=== PATIENT | female | born 1965 | race Caucasian/White ===

== ENCOUNTER 2021-02-23 03:29 | Emergency (ER) | payer OTHER ==
[~2021-02-23] VITALS: Ht 160 cm; Wt 61.4 kg
[~2021-02-23 03:29] MED LIST: ENZY1TAB5 PO; HYDR-4383 PO; LACT1CAP73 PO; LORA-641; LORA0.5T PO; OMEP20CA15 PO; ONDA8TAB6 PO
[2021-02-23] MEDS ORDERED: fentaNYL/PF 50MCG/1 ML 2ML syringe IV ONE (03:55)
[2021-02-23] MEDS ORDERED: LIDOcaine 1% 30ml preserv. free vial IJ ONE (04:40)
[2021-02-23] MEDS ORDERED: propofol 10mg/ml 20ml vial IV ONE (04:40)
[2021-02-23] MEDS ORDERED: ondansetron/PF 4mg/2ml inj IV ONE (04:50)
[2021-02-23] MEDS ORDERED: IBUP-1986 PO ×2 (05:44)
[2021-02-23] MEDS ORDERED: OXYC-145 PO ×2 (05:44)
--- NOTE | 2021-02-23 06:02 | NUR ---
called and left message with to come give patient a ride home.
[2021-02-23 06:24] VITALS: BP 106/70
[2021-02-23] MEDS ORDERED: oxyCODONE/APAP 5-325mg tablet PO ONE (06:35)
--- NOTE | 2021-02-23 06:49 | NUR ---
PT RECEIVED PERCOCET 5MG FOR PAIN RIGHT WRIST 10/25
[2021-02-28] MEDS ORDERED: NO HOME MEDS (15:58)
== END 2021-02-23 06:51 | disposition home or self-care (01) ==
LOC: ER 03:30
DX: S62.101A Fracture of unspecified carpal bone, right wrist, initial encounter for closed fracture (principal); F41.9 Anxiety disorder, unspecified; Z88.2 Allergy status to sulfonamides; Z88.8 Allergy status to other drugs, medicaments and biological substances; X58.XXXA Exposure to other specified factors, initial encounter; Y93.89 Activity, other specified; Y92.89 Other specified places as the place of occurrence of the external cause; Y99.8 Other external cause status
CPT/HCPCS: 25605; 73080; 73110; 94799; 96374; 99152; 99153; 99285; J2001; J2405; J2704; J3010

== ENCOUNTER 2021-03-04 09:44 | Day surgery (SDC) | payer OTHER ==
[~2021-03-04] VITALS: Ht 160 cm; Wt 62.9 kg
[~2021-03-04 09:44] MED LIST changes: -ENZY1TAB5 PO; -HYDR-4383 PO; -LACT1CAP73 PO; -LORA-641; -LORA0.5T PO; +NO HOME MEDS; -OMEP20CA15 PO; -ONDA8TAB6 PO; +cefazolin/dext.iso 2gm/50ml 50 ML IV ONE; +famotidine 20mg tablet PO ONE; +ringers solution, lacted 1,000 ML IV SCH
[2021-03-04] MEDS ORDERED: BUPIVAcaine/PF 2.5 mg/ml (0.25%) 30ml vial ONE (10:22)
[2021-03-04 11:18] LABS: ISTAT ANION GAP 9 (8-12); ISTAT BUN 4 mg/dL (7-18); ISTAT CL 99 mmol/L (99-107); ISTAT CREATININE 0.6 mg/dL (0.6-1.1); ISTAT GLUCOSE 107 mg/dL (70-105); ISTAT HGB 12.6 g/dl (12.0-16.0); ISTAT Hct 37 %PCV (35-48); ISTAT IONIZED CALCIUM 1.19 mmol/L (1.03-1.32); ISTAT K 4.3 mmol/L (3.5-5.1); ISTAT NA 137 mmol/L (135-145); ISTAT TOTAL CO2 29 mmol/L (24-32); ISTAT eGFR > 90 ML/MIN; POC BUN/CREATININE RATIO 6.7 (6.6-38.0)
[2021-03-04] MEDS ORDERED: morphine 2 MG/ML inj. syringe IV PRN (11:25)
[2021-03-04] MEDS ORDERED: proCHLORperazine 10 MG/2 ml inj IV PRN (11:25)
[2021-03-04] MEDS ORDERED: morphine 4 MG/ML inj SYRINge IV PRN (11:25)
[2021-03-04] MEDS ORDERED: ringers solution, lacted 1,000 ML IV SCH (11:25)
[2021-03-04] MEDS ORDERED: meperidine/PF 25mg/ml syringe IV PRN ×3 (11:25)
[2021-03-04] MEDS ORDERED: labetalol 20mg/4ml (5mg/ml) syringe IV PRN (11:25)
[2021-03-04] MEDS ORDERED: acetaminophen 1,000mg/100ml IV 100 ML IV PRN (11:25)
[2021-03-04] MEDS ORDERED: ondansetron/PF 4mg/2ml inj IV PRN (11:25)
[2021-03-04] MEDS ORDERED: hydrALAZINE 20mg/ml inj. IV PRN (11:25)
[2021-03-04] MEDS ORDERED: scopolamine 1mg/72 hr patch TD ONE (11:50)
[2021-03-04] MEDS ORDERED: cloNIDine hcl/PF 100mcg/ml inj ONE (11:58)
[2021-03-04] MEDS ORDERED: fentaNYL/PF 50MCG/1 ML 2ML syringe ONE (12:00)
[2021-03-04] MEDS ORDERED: midazolam 1 mg/ML 2ml injection ONE (12:01)
[2021-03-04] MEDS ORDERED: dexamethasone sod phosphate 4mg/ml inj. ONE (12:52)
[2021-03-04] MEDS ORDERED: LIDOcaine 2% (20mg/ml) 5ml vial ONE (12:52)
[2021-03-04] MEDS ORDERED: ondansetron/PF 4mg/2ml inj ONE (12:52)
[2021-03-04] MEDS ORDERED: ROPIVAcaine 0.5% (5mg/ml) 30ml vial ONE (12:52)
[2021-03-04 13:15] VITALS: BP 129/75
--- NOTE | 2021-03-04 13:15 | NUR ---
ASSUME CARE PT AWAKE ALERT TALKING FM 10 L REMOVED SAT 97% NO DISTRESS, DENIES PAIN SOFT JESSI WRAP DRESSING TO RIGHT HAND INTACT WITH +CMS TO THE RIGHT HAND. ELEVATED AND ICED CONT TO MONITR Addendum: 03/04/21 at 1341 by Carmelita Hart RN Amended: Links added.
[2021-03-04 13:30] VITALS: BP 114/74
[2021-03-04 13:39] VITALS: BP 133/71
[2021-03-04 13:40] VITALS: BP 108/68
--- NOTE | 2021-03-04 13:41 | NUR ---
MORE AWAKE ON RA SAT 96% ENC TCDB HEATHER POS NO PAIN Addendum: 03/04/21 at 1342 by Carmelita Hart RN Amended: Links added.
[2021-03-04 13:42] VITALS: BP 133/71
[2021-03-04 13:50] VITALS: BP 112/65
--- NOTE | 2021-03-04 14:00 | NUR ---
ASSIST PT WITH DRESSING DENIES PAIN INSTR GIVEN NO ?'S OR CONCERNS MEETS CRITERIA TO DC HOME CALLLED Addendum: 03/04/21 at 1453 by Carmelita Hrat RN Amended: Links added.
== END 2021-03-04 14:15 | disposition home or self-care (01) ==
LOC: PAS 09:44
PROVIDERS: ATTEND Orthopaedic Surgery Hand Surgery
DX: S52.531A Colles' fracture of right radius, initial encounter for closed fracture (principal); G89.18 Other acute postprocedural pain; Z20.822 Contact with and (suspected) exposure to COVID-19; Z88.2 Allergy status to sulfonamides; Z91.018 Allergy to other foods; Z79.899 Other long term (current) drug therapy; Z90.710 Acquired absence of both cervix and uterus; Z98.890 Other specified postprocedural states; Z72.89 Other problems related to lifestyle; W19.XXXA Unspecified fall, initial encounter; Y93.89 Activity, other specified; Y92.89 Other specified places as the place of occurrence of the external cause; Y99.8 Other external cause status
CPT/HCPCS: 25607; 64417; 76942; 80047; 87635; 93005; A6222; C1713; C9803; J0735; J1100; J2001; J2250; J2405; J3010; J3490; J7120; Z7506; Z7508; Z7512; A4215; A4618; A6449; A7000; J2795

== ENCOUNTER 2021-04-01 14:27 | Emergency (ER) | payer OTHER ==
[~2021-04-01] VITALS: Ht 160 cm; Wt 61.4 kg
[~2021-04-01 14:27] MED LIST changes: -cefazolin/dext.iso 2gm/50ml 50 ML IV ONE; -famotidine 20mg tablet PO ONE; -ringers solution, lacted 1,000 ML IV SCH
[2021-04-01 15:47] LABS: BASOPHILS % (AUTO) 0.3 % (0-1); EOSINOPHILS # (AUTO) 0.2 X10'3 (0-0.9); EOSINOPHILS % (AUTO) 1.8 % (0-6); HEMATOCRIT 41.9 % (35.0-45.0); HEMOGLOBIN 14.4 g/dl (12.0-16.0); LYMPHOCYTES # (AUTO) 2.2 X10'3 (1.1-4.8); LYMPHOCYTES % (AUTO) 20.3 % (21-51); MEAN CORPUSCULAR HEMOGLOBIN 33.8 PG (27.0-31.0); MEAN CORPUSCULAR HGB CONC 34.3 g/dL (33.0-36.5); MEAN CORPUSCULAR VOLUME 98.4 FL (78-98); MEAN PLATELET VOLUME 7.5 FL (7.4-10.4); MONOCYTES # (AUTO) 0.9 X10'3 (0-0.9); MONOCYTES % (AUTO) 8.5 % (2-12); NEUTROPHILS # (AUTO) 7.3 X10'3 (1.8-7.7); NEUTROPHILS % (AUTO) 69.1 % (42-75); PLATELET COUNT 286 X10'3 (140-440); RED BLOOD COUNT 4.26 X10'6 (4.20-5.60); RED CELL DISTRIBUTION WIDTH 12.5 % (11.5-14.5); WHITE BLOOD COUNT 10.6 X10'3 (4.5-11.0)
[2021-04-01 15:48] LABS: ALANINE AMINOTRANSFERASE 17 U/L (12-78); ALBUMIN 3.9 G/DL (3.4-5.0); ALBUMIN/GLOBULIN RATIO 0.8 (1.1-1.5); ALKALINE PHOSPHATASE 134 IU/L (46-116); ANION GAP 13 (8-16); ASPARTATE AMINO TRANSFERASE 16 U/L (10-37); BILIRUBIN,TOTAL 0.8 MG/DL (0.1-1.0); BLOOD UREA NITROGEN 4 MG/DL (7-18); BUN/CREATININE RATIO 5.6 (6.6-38.0); CALCIUM 9.3 MG/DL (8.5-10.1); CHLORIDE 98 MMOL/L (99-107); CREATININE 0.72 MG/DL (0.40-0.90); GLUCOSE 106 MG/DL (70-104); LIPASE 671 U/L (73-393); POTASSIUM 3.7 MMOL/L (3.5-5.1); SODIUM 137 MMOL/L (135-145); TOTAL CARBON DIOXIDE 26.4 MMOL/L (24-32); TOTAL PROTEIN 8.9 G/DL (6.4-8.2); eGFR 84 ML/MIN
[2021-04-01] MEDS ORDERED: ketorolac trometh. 30mg/ml inj. IV ONE (20:20)
[2021-04-01] MEDS ORDERED: normal saline 1000ML IV soln IVB ONE (20:20)
[2021-04-01] MEDS ORDERED: ondansetron/PF 4mg/2ml inj IV ONE (20:20)
[2021-04-01] MEDS ORDERED: traZODone 50mg tablet PO STA (21:49)
[2021-04-01] MEDS ORDERED: KETO10TA2 PO (22:11)
[2021-04-01] MEDS ORDERED: TRAZ-256 PO (22:11)
[2021-04-01] MEDS ORDERED: ONDA4TAB6 PO (22:11)
[2021-04-01] MEDS ORDERED: morphine 4 MG/ML inj SYRINge IV ONE (22:15)
[2021-04-01] MEDS ORDERED: LACT10SO3 PO (22:17)
[2021-04-01 22:30] VITALS: BP 144/6
== END 2021-04-01 22:33 | disposition home or self-care (01) ==
LOC: ER 14:28
DX: K85.90 Acute pancreatitis without necrosis or infection, unspecified (principal); K59.00 Constipation, unspecified; R10.10 Upper abdominal pain, unspecified; R50.9 Fever, unspecified; R11.0 Nausea; F41.9 Anxiety disorder, unspecified; Z90.710 Acquired absence of both cervix and uterus; Z90.89 Acquired absence of other organs; Z98.890 Other specified postprocedural states; Z72.89 Other problems related to lifestyle; Z88.2 Allergy status to sulfonamides; Z79.899 Other long term (current) drug therapy
CPT/HCPCS: 36415; 74018; 80053; 83690; 85025; 96361; 96374; 96375; 99284; J1885; J2270; J2405; J7030

== ENCOUNTER 2021-04-08 08:00 | Inpatient (IN) | payer OTHER ==
[~2021-04-08] VITALS: Ht 160 cm; Wt 59.1 kg
[~2021-04-08 08:00] MED LIST changes: +KETO10TA2 PO; +LACT10SO3 PO; +ONDA4TAB6 PO; +TRAZ-256 PO
[2021-04-08] MEDS ORDERED: morphine 4 MG/ML inj SYRINge IV ONE ×2 (08:25→17:25)
[2021-04-08] MEDS ORDERED: ondansetron/PF 4mg/2ml inj IV ONE ×2 (08:25→17:25)
[2021-04-08] MEDS ORDERED: normal saline 1000ML IV soln IV ONE (08:25)
[2021-04-08 08:55] LABS: BASOPHILS % (AUTO) 0.4 % (0-1); EOSINOPHILS # (AUTO) 0.1 X10'3 (0-0.9); EOSINOPHILS % (AUTO) 0.8 % (0-6); HEMATOCRIT 34.5 % (35.0-45.0); LYMPHOCYTES % (AUTO) 11.9 % (21-51); MEAN CORPUSCULAR HEMOGLOBIN 33.9 PG (27.0-31.0); MEAN CORPUSCULAR HGB CONC 34.7 g/dL (33.0-36.5); MEAN CORPUSCULAR VOLUME 97.8 FL (78-98); MEAN PLATELET VOLUME 7.2 FL (7.4-10.4); MONOCYTES # (AUTO) 0.9 X10'3 (0-0.9); MONOCYTES % (AUTO) 10.2 % (2-12); NEUTROPHILS # (AUTO) 6.7 X10'3 (1.8-7.7); NEUTROPHILS % (AUTO) 76.7 % (42-75); PLATELET COUNT 430 X10'3 (140-440); RED BLOOD COUNT 3.53 X10'6 (4.20-5.60); RED CELL DISTRIBUTION WIDTH 12.1 % (11.5-14.5); WHITE BLOOD COUNT 8.7 X10'3 (4.5-11.0)
[2021-04-08 09:12] LABS: ALANINE AMINOTRANSFERASE 16 U/L (12-78); ALBUMIN/GLOBULIN RATIO 0.6 (1.1-1.5); ALKALINE PHOSPHATASE 98 IU/L (46-116); ANION GAP 12 (8-16); ASPARTATE AMINO TRANSFERASE 17 U/L (10-37); BILIRUBIN,TOTAL 0.3 MG/DL (0.1-1.0); BLOOD UREA NITROGEN 4 MG/DL (7-18); BUN/CREATININE RATIO 6.6 (6.6-38.0); CALCIUM 8.3 MG/DL (8.5-10.1); CHLORIDE 98 MMOL/L (99-107); CREATININE 0.61 MG/DL (0.40-0.90); GLUCOSE 94 MG/DL (70-104); POTASSIUM 3.5 MMOL/L (3.5-5.1); SODIUM 134 MMOL/L (135-145); TOTAL CARBON DIOXIDE 23.9 MMOL/L (24-32); TOTAL PROTEIN 7.8 G/DL (6.4-8.2); eGFR > 90 ML/MIN
[2021-04-08 09:38] LABS: LIPASE 1464 U/L (73-393)
[2021-04-08] MEDS ORDERED: normal saline 1000ml 1,000 ML IV ONE ×2 (09:45)
[2021-04-08 10:38] LABS: CLARITY,URINE CLEAR (Clear); COLOR,URINE STRAW (Yellow); GLUCOSE, URINE NEGATIVE (Neg); UA COLLECTION TYPE CLN CATCH MIDSTREAM
[2021-04-08 10:39] LABS: KETONES,URINE 80 mg/dl (Neg); LEUKOCYTE ESTERASE ,URINE NEGATIVE (Neg); NITRITES, URINE NEGATIVE (Neg); OCCULT BLOOD,URINE TRACE-INTACT (Neg); PROTEIN,URINE NEGATIVE (Neg); UROBILINOGEN,URINE 0.2 E.U/dL (0.2-1.0)
[2021-04-08] MEDS ORDERED: iohexol 300mg/ml 100ml inj. ONE (10:45)
[2021-04-08 10:46] LABS: MUCUS STRANDS FEW /LPF (Neg); SQUAMOUS EPITHELIAL CELL,UR MANY /LPF (FEW)
[2021-04-08 10:47] LABS: BACTERIA,URINE 1+ /HPF (Neg); RBC,URINE 0-2 /HPF (0-2); TRANSITIONAL EPI CELLS,URINE FEW /HPF; WBC,URINE 0-4 /HPF (0-4)
[2021-04-08] MEDS ORDERED: dextrose 5%-water 1,000 ML IV ONE (12:00)
[2021-04-08] MEDS ORDERED: mag hydrox/Alum hydrox/simeth 30ml oral suspension PO PRN (12:20)
[2021-04-08] MEDS ORDERED: dextrose 50%-water 50ml dispensing syringe IV PRN (12:20)
[2021-04-08] MEDS ORDERED: magnesium 2GM in 50ml NS 50 ML IV PRN (12:20)
[2021-04-08] MEDS ORDERED: ondansetron/PF 4mg/2ml inj IV PRN (12:20)
[2021-04-08] MEDS ORDERED: magnesium hydroxide 30ml (MOM) UD suspension PO PRN (12:20)
[2021-04-08] MEDS ORDERED: LORazepam 2 mg/ml vial IV PRN (12:20)
[2021-04-08] MEDS ORDERED: magnesium 4gm in 100ml NS 100 ML IV PRN (12:20)
[2021-04-08] MEDS ORDERED: acetaminophen 325mg tablet PO PRN (12:20)
[2021-04-08] MEDS ORDERED: potassium Cl 20 mEq SR tablet PO PRN ×2 (12:20)
[2021-04-08] MEDS ORDERED: haloperidol lactate 5mg/ml inj IM PRN (12:20)
[2021-04-08] MEDS ORDERED: haloperidol 5mg tablet PO PRN (12:20)
[2021-04-08] MEDS ORDERED: potassium CL 10mEq/100ml bag 100 ML IV PRN (12:20)
[2021-04-08] MEDS ORDERED: ONDA-103 PO (12:33)
[2021-04-08] MEDS ORDERED: KETO10TA2 PO (12:33)
[2021-04-08] MEDS ORDERED: TRAZ-256 PO (12:33)
[2021-04-08] MEDS ORDERED: LACT10SO3 PO (12:33)
[2021-04-08] MEDS ORDERED: lactulose 20gm/30ml cup PO PRN (12:35)
[2021-04-08] MEDS ORDERED: ondansetron 4mg rapidly disintigrating tab PO PRN (12:35)
[2021-04-08 13:34] LABS: ETHANOL < 0.010 GM/DL (0.0-0.010); MAGNESIUM 1.3 MG/DL (1.5-2.4)
[2021-04-08 13:35] LABS: POTASSIUM 2.9 MMOL/L (3.5-5.1)
[2021-04-08] MEDS: normal saline 1000ml 1,000 ML IV SCH ×3 (17:15→21:15)
[2021-04-08] MEDS: docusate sod 100mg capsule PO SCH (20:00)
[2021-04-08] MEDS ORDERED: enoxaparin 40mg/0.4ml syringe SQ SCH (20:00)
[2021-04-08] MEDS: K and/or MAG REPLACEMENT MC SCH (20:00)
--- NOTE | 2021-04-08 20:00 | NUR ---
Patient in room ED 12. I have received report from REGINE Mercer and had the opportunity to ask questions and assume patient care.
[2021-04-08 20:30] VITALS: BP 120/71
[2021-04-08] MEDS ORDERED: traZODone 50mg tablet PO SCH (21:00)
[2021-04-08 23:43] VITALS: BP 125/76
[2021-04-08] MEDS ORDERED: HYDROcodone/acetaminophen 5mg/325mg tablet PO PRN (23:50)
[2021-04-08] MEDS ORDERED: HYDROcodone/acetaminophen 10/325mg tab PO PRN (23:50)
[2021-04-08] MEDS ORDERED: HYDROmorphone inj. 0.5 MG/0.5 ML DISP.SYRIN IV PRN (23:50)
[2021-04-09] MEDS: normal saline 1000ml 1,000 ML IV SCH ×4 (01:07→13:15)
--- NOTE | 2021-04-09 06:41 | NUR ---
Problems reprioritized. Patient report given, questions answered & plan of care reviewed with REGINE Talavera.
[2021-04-09 08:00] VITALS: BP 105/64
[2021-04-09] MEDS: K and/or MAG REPLACEMENT MC SCH (08:00)
[2021-04-09 09:16] LABS: BASOPHILS % (AUTO) 0.8 % (0-1); EOSINOPHILS # (AUTO) 0.1 X10'3 (0-0.9); EOSINOPHILS % (AUTO) 2.6 % (0-6); HEMATOCRIT 35.4 % (35.0-45.0); HEMOGLOBIN 12.5 g/dl (12.0-16.0); LYMPHOCYTES # (AUTO) 1.6 X10'3 (1.1-4.8); MEAN CORPUSCULAR HEMOGLOBIN 34.2 PG (27.0-31.0); MEAN CORPUSCULAR HGB CONC 35.2 g/dL (33.0-36.5); MEAN CORPUSCULAR VOLUME 97.2 FL (78-98); MEAN PLATELET VOLUME 7.6 FL (7.4-10.4); MONOCYTES # (AUTO) 0.6 X10'3 (0-0.9); MONOCYTES % (AUTO) 10.4 % (2-12); NEUTROPHILS % (AUTO) 56.2 % (42-75); PLATELET COUNT 432 X10'3 (140-440); RED BLOOD COUNT 3.64 X10'6 (4.20-5.60); RED CELL DISTRIBUTION WIDTH 12.4 % (11.5-14.5); WHITE BLOOD COUNT 5.4 X10'3 (4.5-11.0)
[2021-04-09 09:28] LABS: ALANINE AMINOTRANSFERASE 16 U/L (12-78); ALBUMIN 2.6 G/DL (3.4-5.0); ALBUMIN/GLOBULIN RATIO 0.6 (1.1-1.5); ALKALINE PHOSPHATASE 85 IU/L (46-116); ANION GAP 8 (8-16); ASPARTATE AMINO TRANSFERASE 13 U/L (10-37); BILIRUBIN,TOTAL 0.2 MG/DL (0.1-1.0); BLOOD UREA NITROGEN 1 MG/DL (7-18); BUN/CREATININE RATIO 1.8 (6.6-38.0); CALCIUM 8.3 MG/DL (8.5-10.1); CHLORIDE 105 MMOL/L (99-107); CREATININE 0.57 MG/DL (0.40-0.90); GLUCOSE 108 MG/DL (70-104); POTASSIUM 4.2 MMOL/L (3.5-5.1); SODIUM 139 MMOL/L (135-145); TOTAL CARBON DIOXIDE 26.1 MMOL/L (24-32); eGFR > 90 ML/MIN
[2021-04-09 09:29] LABS: CHOL/HDL RATIO 3.4 (0.00-4.99); CHOLESTEROL 137 MG/DL (0-200); HDL CHOLESTEROL 40 MG/DL (35-60); LDL CHOLESTEROL 67 MG/DL (50-100); LIPASE 206 U/L (73-393); MAGNESIUM 3.2 MG/DL (1.5-2.4); TRIGLYCERIDES 81 MG/DL (20-135)
--- NOTE | 2021-04-09 09:55 | NUR ---
Malnutrition consult: Pt reports 2-13 lb wt loss with decreased appetite per malnutrition risk screen with RN. Pt with scaled wt h/o 62.9 kg taken 03/04/21 with a standing scale, current documented wt isn't scaled though pt with scaled wt of 61.36 kg 04/01/21 taken with a chair scale. Overall wt appears stable. Pending documentation of PO intake on clear liquid diet. Pt with no documented edema and appears well developed well nourished per ED report. Pt currently lacks a minimum of two criteria for malnutrition. Will continue to follow. Addendum: 04/09/21 at [address] Amended: Links added.
[2021-04-09] MEDS: docusate sod 100mg capsule PO SCH (10:01)
[2021-04-09 11:00] VITALS: BP 111/74
[2021-04-09] MEDS ORDERED: HYDR-3972 PO (13:11)
--- NOTE | 2021-04-09 14:32 | NUR ---
home med returned to pt.
[2021-04-10] MEDS ORDERED: LORazepam 1 MG tablet PO PRN (12:20)
[2021-04-10] MEDS ORDERED: LORazepam 2 mg/ml vial IV PRN (12:20)
[2021-04-12] MEDS ORDERED: LORazepam 1 MG tablet PO PRN (12:20)
[2021-04-12] MEDS ORDERED: LORazepam 2 mg/ml vial IV PRN (12:20)
[2021-04-13] MEDS ORDERED: folic acid 1mg tablet PO SCH (08:00)
[2021-04-13] MEDS ORDERED: thiamine 100mg tablet PO SCH (08:00)
== END 2021-04-09 14:51 | disposition home or self-care (01) | DRG 439 ==
LOC: ER 08:00 → ED HOLD 12:25 → SUR 3N 20:32
PROVIDERS: ADMIT Family Medicine; ATTEND Family Medicine
PROC: BW211ZZ Computerized Tomography (CT Scan) of Abdomen and Pelvis using Low Osmolar Contrast (ICD-10-PCS; principal; 2021-04-08)
DX: K85.90 Acute pancreatitis without necrosis or infection, unspecified (principal); K86.3 Pseudocyst of pancreas; R18.8 Other ascites; D68.9 Coagulation defect, unspecified; K76.9 Liver disease, unspecified; K86.1 Other chronic pancreatitis; F41.9 Anxiety disorder, unspecified; Z80.3 Family history of malignant neoplasm of breast; Z83.3 Family history of diabetes mellitus; Z90.710 Acquired absence of both cervix and uterus; Z88.2 Allergy status to sulfonamides; Z79.899 Other long term (current) drug therapy
CPT/HCPCS: 36415; 71045; 74177; 76700; 80053; 80061; 80320; 81001; 82140; 83605; 83690; 83735; 84100; 84132; 84145; 85025; 85610; 87040; 87081; 93005; 96361; 96374; 96375; 97161; 99285; G0378; J1650; J2060; J2270; J2405; J3475; J3480; J7030; J7070; Q9967

== ENCOUNTER 2021-04-14 11:34 | Emergency (ER) | payer OTHER ==
[~2021-04-14] VITALS: Ht 160 cm; Wt 59.0 kg
[~2021-04-14 11:34] MED LIST changes: +HYDR-3972 PO; -KETO10TA2 PO; -NO HOME MEDS; +ONDA-103 PO; -ONDA4TAB6 PO
[2021-04-14] MEDS ORDERED: ondansetron 4mg rapidly disintigrating tab PO ONE (12:10)
[2021-04-14 12:27] LABS: BASOPHILS # (AUTO) 0.1 X10'3 (0-0.2); BASOPHILS % (AUTO) 1.2 % (0-1); EOSINOPHILS # (AUTO) 0.1 X10'3 (0-0.9); EOSINOPHILS % (AUTO) 0.8 % (0-6); HEMATOCRIT 37.6 % (35.0-45.0); LYMPHOCYTES # (AUTO) 1.3 X10'3 (1.1-4.8); LYMPHOCYTES % (AUTO) 13.6 % (21-51); MEAN CORPUSCULAR HEMOGLOBIN 33.5 PG (27.0-31.0); MEAN CORPUSCULAR HGB CONC 34.5 g/dL (33.0-36.5); MEAN PLATELET VOLUME 7.2 FL (7.4-10.4); MONOCYTES # (AUTO) 0.5 X10'3 (0-0.9); MONOCYTES % (AUTO) 5.1 % (2-12); NEUTROPHILS # (AUTO) 7.7 X10'3 (1.8-7.7); NEUTROPHILS % (AUTO) 79.3 % (42-75); PLATELET COUNT 437 X10'3 (140-440); RED BLOOD COUNT 3.87 X10'6 (4.20-5.60); RED CELL DISTRIBUTION WIDTH 12.4 % (11.5-14.5); WHITE BLOOD COUNT 9.7 X10'3 (4.5-11.0)
[2021-04-14 12:34] LABS: PARTIAL THROMBOPLASTIN TIME 25 SECONDS (22-32)
[2021-04-14 12:36] LABS: ALANINE AMINOTRANSFERASE 18 U/L (12-78); ALBUMIN 3.5 G/DL (3.4-5.0); ALBUMIN/GLOBULIN RATIO 0.7 (1.1-1.5); ALKALINE PHOSPHATASE 95 IU/L (46-116); ANION GAP 7 (8-16); ASPARTATE AMINO TRANSFERASE 13 U/L (10-37); BILIRUBIN,TOTAL 0.5 MG/DL (0.1-1.0); BLOOD UREA NITROGEN 6 MG/DL (7-18); BUN/CREATININE RATIO 8.2 (6.6-38.0); CHLORIDE 97 MMOL/L (99-107); CREATININE 0.73 MG/DL (0.40-0.90); ETHANOL < 0.010 GM/DL (0.0-0.010); GLUCOSE 114 MG/DL (70-104); POTASSIUM 3.8 MMOL/L (3.5-5.1); SODIUM 132 MMOL/L (135-145); TOTAL CARBON DIOXIDE 28.1 MMOL/L (24-32); TOTAL PROTEIN 8.3 G/DL (6.4-8.2); eGFR 82 ML/MIN
[2021-04-14 12:50] LABS: LIPASE 2972 U/L (73-393)
[2021-04-14] MEDS ORDERED: HYDROmorphone 1 mg/ml syringe IV ONE (13:35)
[2021-04-14] MEDS ORDERED: ondansetron/PF 4mg/2ml inj IV ONE (13:35)
[2021-04-14] MEDS ORDERED: normal saline 1000ML IV soln IVB ONE (13:35)
[2021-04-14] MEDS ORDERED: ONDA4TAB6 PO ×2 (13:59→16:07)
[2021-04-14] MEDS ORDERED: HYDR-3972 PO (16:07)
[2021-04-14 16:28] VITALS: BP 117/82
== END 2021-04-14 16:25 | disposition home or self-care (01) ==
LOC: ER 11:34
DX: K86.3 Pseudocyst of pancreas (principal); K86.0 Alcohol-induced chronic pancreatitis; F41.9 Anxiety disorder, unspecified; Z88.2 Allergy status to sulfonamides; Z79.899 Other long term (current) drug therapy
CPT/HCPCS: 36415; 71045; 80053; 80320; 83690; 85025; 85610; 85730; 96361; 96374; 96375; 99284; J1170; J2405; J7030

== ENCOUNTER 2021-08-23 06:33 | Day surgery (SDC) | payer OTHER ==
[2021-08-22 11:19] LABS: BASOPHILS # (AUTO) 0.1 X10'3 (0-0.2); BASOPHILS % (AUTO) 0.7 % (0-1); EOSINOPHILS # (AUTO) 0.4 X10'3 (0-0.9); EOSINOPHILS % (AUTO) 4.3 % (0-6); LYMPHOCYTES % (AUTO) 31.7 % (21-51); MEAN CORPUSCULAR HEMOGLOBIN 31.3 PG (27.0-31.0); MEAN CORPUSCULAR HGB CONC 33.1 g/dL (33.0-36.5); MEAN CORPUSCULAR VOLUME 94.8 FL (78-98); MEAN PLATELET VOLUME 7.2 FL (7.4-10.4); MONOCYTES # (AUTO) 0.5 X10'3 (0-0.9); MONOCYTES % (AUTO) 5.3 % (2-12); NEUTROPHILS # (AUTO) 5.4 X10'3 (1.8-7.7); PRE OP HEMATOCRIT 40.4 % (35.0-45.0); PRE OP HEMOGLOBIN 13.3 g/dL (12.0-16.0); PRE OP PLATELET COUNT 312 X10'3 (140-440); RED BLOOD COUNT 4.26 X10'6 (4.20-5.60); RED CELL DISTRIBUTION WIDTH 12.1 % (11.5-14.5)
[2021-08-22 11:33] LABS: ALBUMIN 4.4 G/DL (3.4-5.0); ALBUMIN/GLOBULIN RATIO 1.1 (1.1-1.5); ALKALINE PHOSPHATASE 107 IU/L (46-116); BLOOD UREA NITROGEN 9 MG/DL (7-18); BUN/CREATININE RATIO 16.7 (6.6-38.0); CALCIUM 9.5 MG/DL (8.5-10.1); CHLORIDE 101 MMOL/L (99-107); CREATININE 0.54 MG/DL (0.40-0.90); PRE OP ALT 16 U/L (30-65); PRE OP ANION GAP 11 (8-16); PRE OP AST 23 U/L (10-37); PRE OP GLUCOSE 77 MG/DL (70-104); PRE OP POTASSIUM 3.8 MMOL/L (3.4-5.1); PRE OP SODIUM 136 MMOL/L (135-145); TOTAL CARBON DIOXIDE 24.5 MMOL/L (24-32); TOTAL PROTEIN 8.4 G/DL (6.4-8.2); eGFR > 90 ML/MIN
[~2021-08-23] VITALS: Ht 160 cm; Wt 59.4 kg
[~2021-08-23 06:33] MED LIST changes: +GABA300C PO; +HORMONE THERAPY; -HYDR-3972 PO; -LACT10SO3 PO; -ONDA-103 PO; -TRAZ-256 PO; +cefazolin/dext.iso 2gm/50ml IV ONE; +famotidine 20mg tablet PO ONE; +ringers solution, lacted 1,000 ML IV SCH; +scopolamine 1mg/72 hr patch TD SCH
[2021-08-23 07:00] VITALS: BP 111/71
[2021-08-23] MEDS ORDERED: morphine 2 MG/ML inj. syringe IV PRN (07:25)
[2021-08-23] MEDS ORDERED: morphine 4 MG/ML inj SYRINge IV PRN (07:25)
[2021-08-23] MEDS ORDERED: hydrALAZINE 20mg/ml inj. IV PRN (07:25)
[2021-08-23] MEDS ORDERED: labetalol 20mg/4ml (5mg/ml) syringe IV PRN (07:25)
[2021-08-23] MEDS ORDERED: fentaNYL/PF 50MCG/1 ML 2ML syringe IV PRN ×2 (07:25)
[2021-08-23] MEDS ORDERED: ringers solution, lacted 1,000 ML IV SCH (07:25)
[2021-08-23] MEDS ORDERED: ondansetron/PF 4mg/2ml inj IV PRN (07:25)
[2021-08-23] MEDS ORDERED: BUPIVAcaine 0.5% inj/PF 30 ML ONE (09:04)
[2021-08-23] MEDS ORDERED: LIDOcaine 0.5% (5mg/ml) 50ml vial ONE (09:13)
[2021-08-23] MEDS ORDERED: MIDAZolam 1 MG/ML 5ML VIAL ONE (09:14)
[2021-08-23] MEDS ORDERED: ketorolac trometh. 30mg/ml inj. ONE (09:16)
[2021-08-23] MEDS ORDERED: LIDOcaine 2% (20mg/ml) 5ml vial ONE (09:17)
[2021-08-23] MEDS ORDERED: propofol inj 20 ML IV ONE (09:17)
[2021-08-23] MEDS ORDERED: BUPIVAcaine 0.5% inj/PF 30 ml vial IJ ONE (09:59)
[2021-08-23 10:09] VITALS: BP 121/78
--- NOTE | 2021-08-23 10:09 | NUR ---
Received from OR via , accompanied by Anesthesiologist DR FALK and report given by Anesthesiolgist. AWAKENS TO VOICE. VITALS STABLE. DRESSING DI. ILYA PAIN. FINGERS WARM AND PINK.
[2021-08-23 10:18] VITALS: BP 115/70
[2021-08-23 10:28] VITALS: BP 118/71
[2021-08-23 10:38] VITALS: BP 116/69
[2021-08-23] MEDS ORDERED: HYDROcodone/acetaminophen 10/325mg tab PO ONE (10:45)
--- NOTE | 2021-08-23 10:59 | NUR ---
AWAKE AND ORIENTED. VITALS STABLE. DRESSING DI. ILYA PAIN. HOME WITH HER SPOUSE AT THIS TIME.
== END 2021-08-23 10:59 | disposition home or self-care (01) ==
LOC: PAS 06:33
PROVIDERS: ATTEND Orthopaedic Surgery Hand Surgery
DX: G56.21 Lesion of ulnar nerve, right upper limb (principal); Z79.899 Other long term (current) drug therapy; Z90.710 Acquired absence of both cervix and uterus; Z98.890 Other specified postprocedural states; Z88.2 Allergy status to sulfonamides; Z72.89 Other problems related to lifestyle; Z20.822 Contact with and (suspected) exposure to COVID-19
CPT/HCPCS: 36415; 64719; 80053; 82948; 85025; 87635; C9803; J1885; J2250; J2704; J3490; J7030; J7120; S0020; Z7506; Z7512; A4215; A4618; A6446; A6449; A7000